=== PATIENT | female | born 1985 | race American Indian/Alaskan Native ===

== ENCOUNTER 2017-10-09 20:04 | Emergency (ER) | payer OTHER ==
[2017-10-10] MEDS ORDERED: ATROVENT IH ONE (03:06)
[2017-10-10] MEDS ORDERED: XOPENEX IH ONE (03:06)
[2017-10-10] MEDS ORDERED: TYLENOL/CODEINE PO ONE (03:06)
--- NOTE | 2017-10-10 03:06 | Emergency Department Report ---
ED Asthma HPI - General Chief Complaint: Adult Asthma Stated Complaint: PARRISH Time Seen by Provider: 10/10/17 02:02 Source: patient Mode of arrival: Ambulatory Limitations: No Limitations - History of Present Illness Initial Comments: Patient here complained an asthma attack with cough, wheezing. She said that she ran out of her nebulizer treatments at home and she has a machine. She is here to get refill on medication. Patient denies any pain but reports that she is wheezing and coughing a lot. She also reports that for about a week she's been having runny nose and nasal congestion from pollen and she thinks this what flared up her asthma. Denies any chest pain. Pain at present is 0/10. No medication taken. Last menstrual period 10/06/2017 MD Complaint: "asthma attack", wheezing Onset/Timin -: days(s) Asthma History: childhood onset, history of prior ED visit Severity: similar to prior Context: recent URI, ran out of meds, allergen exposure Associated Symptoms: dry cough. denies: fever, chest pain, hemoptysis, leg edema, syncope Treatments Prior to Arrival: other (none) - Related Data Current Asthma Therapy: inhaled bronchodilator Previous Rx's Medication Instructions Recorded Last Taken Type ALBUTEROL Inhaler [ProAir HFA 2 puff IH Q4H PRN #1 inhalation 10/10/17 Unknown Rx Inhaler] ALBUTEROL NEB's [Proventil 0.083% 2.5 mg IH Q4H PRN #1 box 10/10/17 Unknown Rx NEBS] Amoxicillin/K Clav Tab [Augmentin 1 tab PO Q12HR 10 Days #20 tab 10/10/17 Unknown Rx 875 mg] Cetirizine HCl [ZyrTEC] 10 mg PO QAM 14 Days #14 capsule 10/10/17 Unknown Rx Fluticasone [Flonase] 1 spray NS QDAY 14 Days #1 bottle 10/10/17 Unknown Rx predniSONE [Deltasone] 50 mg PO QDAY 5 Days #5 tab 10/10/17 Unknown Rx Allergies Allergy/AdvReac Type Severity Reaction Status Date / Time lobster Allergy Angioedema Uncoded 10/09/17 20:45 ED Review of Systems ROS: Stated complaint: PARRISH Other details as noted in HPI Comment: All other systems reviewed and negative Constitutional: no symptoms reported Eyes: denies: eye discharge ENT: congestion. denies: ear pain, throat pain, dental pain Respiratory: cough, wheezing. denies: orthopnea, shortness of breath, SOB with exertion, SOB at rest, stridor Cardiovascular: denies: chest pain, palpitations, dyspnea on exertion, edema, syncope, paroxysmal nocturnal dyspnea Gastrointestinal: denies: abdominal pain, nausea, vomiting, diarrhea, constipation, hematemesis, melena, hematochezia Musculoskeletal: denies: back pain, joint swelling, arthralgia, myalgia Skin: denies: rash Neurological: denies: headache, weakness, numbness, paresthesias, confusion, abnormal gait, vertigo ED Past Medical Hx - Past Medical History Previous Medical History?: Yes Hx Asthma: Yes - Surgical History Past Surgical History?: Yes Hx Cholecystectomy: Yes Additional Surgical History: umbilical hernia - Family History Family history: no significant - Social History Smoking Status: Never Smoker Substance Use Type: Alcohol - Medications Home Medications: Home Medications Medication Instructions Recorded Confirmed Last Taken Type ALBUTEROL Inhaler [ProAir HFA 2 puff IH Q4H PRN #1 inhalation 10/10/17 Unknown Rx Inhaler] ALBUTEROL NEB's [Proventil 0.083% 2.5 mg IH Q4H PRN #1 box 10/10/17 Unknown Rx NEBS] Amoxicillin/K Clav Tab [Augmentin 1 tab PO Q12HR 10 Days #20 tab 10/10/17 Unknown Rx 875 mg] Cetirizine HCl [ZyrTEC] 10 mg PO QAM 14 Days #14 capsule 10/10/17 Unknown Rx Fluticasone [Flonase] 1 spray NS QDAY 14 Days #1 bottle 10/10/17 Unknown Rx predniSONE [Deltasone] 50 mg PO QDAY 5 Days #5 tab 10/10/17 Unknown Rx ED Physical Exam - General Limitations: No Limitations General appearance: alert, in no apparent distress - Head Head exam: Present: atraumatic, normocephalic, normal inspection - Eye Eye exam: Present: normal appearance, PERRL, EOMI. Absent: periorbital swelling , periorbital tenderness Pupils: Present: normal accommodation - ENT ENT exam: Present: normal orophraynx, mucous membranes moist, normal external ear exam, other (Bilateral nasal mucosa pale and boggy with clear drainage. No maxillary or frontal sinus tenderness). Absent: normal exam, TM's normal bilaterally (bilateral TM congested without erythema) - Neck Neck exam: Present: normal inspection, full ROM, other (no C-spine tenderness). Absent: tenderness, lymphadenopathy - Respiratory Respiratory exam: Present: wheezes, other (dry cough). Absent: normal lung sounds bilaterally, respiratory distress, rales, rhonchi, stridor, chest wall tenderness, accessory muscle use, decreased breath sounds, prolonged expiratory - Cardiovascular Cardiovascular Exam: Present: regular rate, normal rhythm, normal heart sounds. Absent: systolic murmur, diastolic murmur - GI/Abdominal GI/Abdominal exam: Present: soft, normal bowel sounds. Absent: distended, tenderness, guarding, rebound, rigid, organomegaly, mass, bruit, pulsatile mass , hernia - Extremities Exam Extremities exam: Present: normal inspection, full ROM, normal capillary refill. Absent: tenderness, pedal edema, joint swelling, calf tenderness - Back Exam Back exam: Present: normal inspection, full ROM. Absent: tenderness, CVA tenderness (R), CVA tenderness (L), muscle spasm, paraspinal tenderness, vertebral tenderness, rash noted - Neurological Exam Neurological exam: Present: alert, oriented X3, normal gait, reflexes normal. Absent: motor sensory deficit - Psychiatric Psychiatric exam: Present: normal affect, normal mood - Skin Skin exam: Present: warm, dry, intact, normal color. Absent: rash ED Course Vital Signs 10/09/17 10/10/17 10/10/17 20:40 01:30 03:50 Temperature 98.2 F 98.5 F 97.7 F Pulse Rate 97 H 103 H 73 Pulse Rate [ Bilateral Throughout] Respiratory 20 22 18 Rate Respiratory Rate [Bilateral Throughout] Blood Pressure 136/75 Blood Pressure 136/98 132/75 [Left] O2 Sat by Pulse 98 99 100 Oximetry 10/10/17 05:44 Temperature Pulse Rate Pulse Rate [ 85 Bilateral Throughout] Respiratory Rate Respiratory 20 Rate [Bilateral Throughout] Blood Pressure Blood Pressure [Left] O2 Sat by Pulse Oximetry - Reevaluation(s) Reevaluation #1: 10/10/17 03:08 Respiratory therapist start patient on Xopenex 1.25 mg nebulizer and Atrovent 0.5 mg. Also, patient to receive Deltasone 60 mg by mouth and Tylenol with codeine elixir 10 mg by mouth. We'll reevaluate after treatment. Reevaluation #2: 10/10/17 04:54 Status post Xopenex and Atrovent treatment along with Deltasone 60 mg by mouth patient still with significant wheezing to lung tejeda. Patient to receive albuterol 5 mg nebulizer, Solu-Medrol 125 mg IV and magnesium sulfate 2 g IV and we'll reevaluate. Reevaluation #3: 10/10/17 06:41 Upon reevaluation, lungs sounds with minor wheezing to upper lung tejeda. Patient says she feels better after IV magnesium, IV Solu-Medrol and additional albuterol nebulizer. ED Medical Decision Making - EKG Data -: EKG Interpreted by Me (attending physician in emergency room) EKG shows normal: sinus rhythm (78 bpm) Rate: normal - EKG Data Interpretation: no acute changes - Medical Decision Making ED course: She is status post moderate persistent asthma attack. She came to the hospital reporting that she ran out of her medication. [place] have widespread wheezing throughout lung tejeda with dry cough and allergic rhinitis. She had told triage nurse that she is having difficulty breathing but denies that to me. EKG was done and it showed the patient was in sinus rhythm at 70 bpm. Patient was given Xopenex 1.25 mg, Atrovent 0.5 mg nebulizer and Deltasone 60 mg by mouth. She was given Tylenol with codeine 10 mL elixir for coughing. After nebulizer treatment and steroid patient said she still wheezy and she felt a little bit better. Her lungs still with widespread wheezing although a little better. Patient was then given an albuterol 5 mg nebulizer, Solu-Medrol 125 mg IV and magnesium 2 g IV. Upon reevaluation she has very minor wheezing to upper lung field, pulse ox is stable and normal work of breathing . I discussed patient her diagnosis and treatment plan. I discussed with her that she needs to follow up at [facility] for primary care visit to manage her chronic asthma. She voiced understanding and. Patient discharged home with prescription for albuterol nebulizer, albuterol inhaler, Augmentin, Flonase and Zyrtec. Critical care attestation.: If time is entered above; I have spent that time in minutes in the direct care of this critically ill patient, excluding procedure time. ED Disposition Clinical Impression: Upper respiratory infection with cough and congestion Asthma attack Qualifiers: Asthma severity: mild Asthma persistence: persistent Qualified Code(s): J45.31 - Mild persistent asthma with (acute) exacerbation Disposition: DC-01 TO HOME OR SELFCARE Is pt being admited?: No Does the pt Need Aspirin: No Condition: Stable Instructions: Asthma (ED), Upper Respiratory Infection (ED), Acute Cough (ED) Additional Instructions: Please take Zyrtec and Flonase to relieve nasal congestion and ear congestion. Please take albuterol nebulizer every 4 hours 48 hours and then as needed Take albuterol inhaler and uses needed when better. Augmentin will cover you for infection since she been having upper respiratory problems for over a week Take steroids as prescribed If you symptoms or turn, please return to the emergency room [facility] otherwise follow up at [facility]. Prescriptions: ALBUTEROL Inhaler [ProAir HFA Inhaler] 2 puff IH Q4H PRN #1 inhalation PRN Reason: cough and wheeze ALBUTEROL NEB's [Proventil 0.083% NEBS] 2.5 mg IH Q4H PRN #1 box PRN Reason: cough and wheeze Amoxicillin/K Clav Tab [Augmentin 875 mg] 1 tab PO Q12HR 10 Days #20 tab Cetirizine HCl [ZyrTEC] 10 mg PO QAM 14 Days #14 capsule Fluticasone [Flonase] 1 spray NS QDAY 14 Days #1 bottle predniSONE [Deltasone] 50 mg PO QDAY 5 Days #5 tab Referrals: [facility] [Outside] - 10/13/17 Forms: Work/School Release Form(ED)
[2017-10-10] MEDS ORDERED: DELTASONE PO ONE (03:08)
[2017-10-10 04:02] VITALS: BP 132/75
[2017-10-10] MEDS ORDERED: PROVENTIL IH ONE (04:53)
[2017-10-10] MEDS ORDERED: MAGNESIUM SULFATE 2GM/50ML 2 GM/50 ML BAG IV ONE (04:53)
== END 2017-10-10 07:04 | disposition home or self-care (01) ==
LOC: ED 20:04
DX: J06.9 Acute upper respiratory infection, unspecified (principal); J45.909 Unspecified asthma, uncomplicated; Z90.49 Acquired absence of other specified parts of digestive tract; Z91.013 Allergy to seafood
CPT/HCPCS: 93005; 93010; 94640; 94644; 96365; 96375; 99283; J2930; J3475; J7512